=== PATIENT | female | born 1960 | race Two or more races ===

== ENCOUNTER 2018-02-13 08:14 | Outpatient (CLI) | payer OTHER | END 2018-02-13 08:33 | disposition home or self-care (01) | LOC: NUCLEAR 08:14 | DX: M25.50 Pain in unspecified joint (principal) | CPT/HCPCS: 78306; A9503 ==

== ENCOUNTER 2021-02-02 07:38 | Outpatient (CLI) | payer OTHER | END 2021-02-02 07:39 | disposition home or self-care (01) | LOC: EDBD 07:38 → NUCLEAR 07:38 | PROVIDERS: ATTEND Internal Medicine Rheumatology | DX: M25.50 Pain in unspecified joint (principal) | CPT/HCPCS: 78315; A9503 ==

== ENCOUNTER 2023-04-12 07:08 | Outpatient (CLI) | payer OTHER | END 2023-04-12 07:09 | disposition home or self-care (01) | LOC: NUCLEAR 07:08 | PROVIDERS: ATTEND Internal Medicine Rheumatology | DX: M25.50 Pain in unspecified joint (principal) ==